=== PATIENT | female | born 1945 | race Hispanic/Latino ===

== ENCOUNTER → 2024-01-08 | Outpatient (CLI) | payer MEDICARE ==
[~2024-01-08] MED LIST: ASPI-1012 PO; ATOR40TA69 PO; ESOM40CA PO; FURO40TA5 PO; LINA5TAB PO; LOSA100T59 PO; LUBI24CA2 PO; MAGN400T40 PO; METF-444 PO; METO-408 PO; NITR0.4T50 SL; POTA-202 PO; SERT-439 PO
== END | disposition home or self-care (01) ==
LOC: RAH 09:18
PROVIDERS: ATTEND Internal Medicine Gastroenterology
DX: K21.9 Gastro-esophageal reflux disease without esophagitis (principal); K22.2 Esophageal obstruction; R13.10 Dysphagia, unspecified
CPT/HCPCS: 74220